=== PATIENT | male | born 1975 | race Caucasian/White ===

== ENCOUNTER → 2020-08-09 | Outpatient (CLI) | payer BC ==
--- NOTE | 2020-08-09 10:42 | XR ---
EXAMINATION TYPE: XR KUB DATE OF EXAM: 08/09/2020 10:34 AM CLINICAL HISTORY: Left-sided flank pain. Kidney stone. TECHNIQUE: Two supine KUB images of the abdomen are obtained. COMPARISON: None. FINDINGS: Scattered gas is seen in non-distended stomach and small bowel loops. Gas and fecal materia l is seen in non-distended colon. There is no visceromegaly or abnormal calcification appreciated. Th e lung bases are clear and the osseous structures are intact. IMPRESSION: No definitive nephrolithiasis.
[2020-08-09 11:36] LABS: Appearance,Urine Clear (Clear); Bilirubin,Urine Negative (Negative); Blood,Urine Negative (Negative); Color,Urine Light Yellow; Glucose,Urine (UA) Negative (Negative); Ketones,Urine Negative (Negative); Leukocyte Esterase,Urine Negative (Negative); Nitrite,Urine Negative (Negative); Protein,Urine Negative (Negative); Specific Gravity,Urine 1.006 (1.001-1.035); Urobilinogen,Urine <2.0 mg/dL (<2.0)
== END | disposition home or self-care (01) ==
LOC: LABWHC1 10:04
PROVIDERS: ATTEND Internal Medicine
DX: N20.0 Calculus of kidney (principal); R10.9 Unspecified abdominal pain
CPT/HCPCS: 74018; 81003

== ENCOUNTER → 2022-02-26 | Outpatient (CLI) | payer BC ==
[2022-02-26 22:25] LABS: Appearance,Urine Clear (Clear); Bilirubin,Urine Negative (Negative); Blood,Urine Negative (Negative); Color,Urine Yellow (Yellow); Ketones,Urine Negative (Negative); Nitrite,Urine Negative (Negative); Specific Gravity,Urine 1.005 (1.001-1.030); Urobilinogen,Urine 0.2 (0.2,1.0)
[2022-02-26 22:51] LABS: Basophils # (A) 0.05 X 10*3/uL (0.00-0.10); Basophils % (A) 0.8 %; Eosinophils # (A) 0.12 X 10*3/uL (0.04-0.35); HCT 49.8 % (39.6-50.0); HGB 16.3 g/dL (13.0-17.0); Immature Grans, Automated 0.3 %; Lymphocytes # (A) 1.53 X 10*3/uL (0.90-5.00); Lymphocytes % (A) 25.6 %; MCHC 32.7 g/dL (32.0-37.0); MCV 94.9 fL (80.0-97.0); Mean Platelet Volume 12.9 fL (9.5-12.2); Monocytes # (A) 0.61 X 10*3/uL (0.20-1.00); Monocytes % (A) 10.2 %; NRBC Per 100 WBC 0 /100 WBCS (0.0-0.0); Neutrophils # (A) 3.64 X 10*3/uL (1.80-7.70); Neutrophils % (A) 61.1 %; Platelet Count 190 X 10*3/uL (140-440); RBC 5.25 X 10*6/uL (4.40-5.60); RDW 12.8 % (11.5-14.5); WBC 5.97 X 10*3/uL (4.50-10.00)
[2022-02-26 23:05] LABS: ALT 34 U/L (10-49); AST 26 U/L (14-35); African American GFR (CKD) 97.3 (60.0-200.0); Albumin 4.8 g/dL (3.8-4.9); Albumin/Globulin Ratio 2.41 (1.60-3.17); Alkaline Phosphatase 62 U/L (41-126); BUN/Creat Ratio 6.79 Ratio (12.00-20.00); Blood Urea Nitrogen 7.3 mg/dL (9.0-27.0); Calcium 9.8 mg/dL (8.7-10.3); Carbon Dioxide 24.8 mmol/L (20.0-27.5); Chloride 104 mmol/L (96-109); Chol/HDL Ratio 3.62 Ratio; Glucose 81 mg/dL (70-110); LDL Cholesterol,Calculated 126.6 mg/dL (0.0-131.0); Potassium 4.6 mmol/L (3.5-5.5); Sodium 140 mmol/L (135-145); Total Protein 6.8 g/dL (6.2-8.2)
== END | disposition home or self-care (01) ==
LOC: LABWHC1 13:49
PROVIDERS: ATTEND Internal Medicine
DX: Z00.00 Encounter for general adult medical examination without abnormal findings (principal)
CPT/HCPCS: 80053; 80061; 84443; 85025; 81003; 83036; 36415; G0103

== ENCOUNTER → 2022-05-07 | Outpatient (CLI) | payer BC ==
--- NOTE | 2022-05-08 06:07 | MR ---
EXAMINATION TYPE: MR knee LT wo con DATE OF EXAM: 05/07/2022 COMPARISON: None HISTORY: Left inner and outer knee pain, pain in front of knee, and swelling for 3 weeks due to twist ing and over extended on uneven ground Multiplanar multi echo imaging of the left knee with no contrast. The posterior cruciate ligament is intact. There is complete tear of the anterior cruciate ligament. There is some linear defect in the proximal tibia consistent with reconstructive surgery. There is mo derate there is patchy abnormal increased signal in the medial and lateral tibial condyles consistent with extensive bone bruise. No definite fracture line seen. There is some mild edema also in the med ial aspect medial femoral condyle. The collateral ligaments are intact. There is horizontal and verti link tear through the posterior horn of the medial meniscus. The lateral meniscus is intact. IMPRESSION: Knee joint effusion. Extensive bone bruise involving the medial and lateral proximal tibia. Small bon e bruise medial femoral condyle. Reconstructive surgery. There appears to be complete tear of the anterior cruciate reconstructed liga ment. Complex tear posterior aspect of posterior horn of the medial meniscus.
== END | disposition home or self-care (01) ==
LOC: RADMRIMAIN 21:45
PROVIDERS: ATTEND Orthopaedic Surgery
DX: M25.462 Effusion, left knee (principal); M25.562 Pain in left knee